=== PATIENT | male | born 1960 | race Caucasian/White ===

== ENCOUNTER 2018-02-16 13:26 | Outpatient (CLI) | payer BC, SELFPAY ==
--- NOTE | 2018-02-16 13:17 | DI.RAD_ITS ---
SYMPTOM/DIAGNOSIS: PAIN RIGHT KNEE: There are no prior comparison exams. There is severe narrowing of the medial femoral tibial joint with periarticular spurring and varus angulation. Spurring is also seen at the tibial spines and patellofemoral joint. There is an ossification in the patellar tendon near the tibial tubercule and some spurring at the tibiotubercule. IMPRESSION: Severe degenerative changes of the medial femoral tibial joint. STANDING BILATERAL LOWER EXTREMITIES: Standing AP view was performed from the iliac crests through the ankles. The hip joint spaces are well maintained. There is severe narrowing of the medial femoral tibial joint space of the right knee with some varus angulation. The left knee shows normal joint space. There are degenerative changes of both ankles with spurring from the malleoli. No significant ankle joint space narrowing is seen. There is no significant leg length discrepancy. IMPRESSION: Severe degenerative changes of the medial femoral tibial joint of the right knee.
== END 2018-02-16 13:46 ==
PROVIDERS: Visit Provider Physician Assistant Surgical
DX: M25.561 Pain in right knee (principal); M17.11 Unilateral primary osteoarthritis, right knee
CPT/HCPCS: 73560; 77073

== ENCOUNTER 2018-09-16 09:01 | Outpatient (CLI) | payer BC, SELFPAY ==
--- NOTE | 2018-09-16 08:04 | W.PREOPHP ---
Date of service: 09/16/18 Assessment and Plan (1) Primary osteoarthritis of right knee: Current visit: Yes Status: Chronic Right total knee replacement. Details of surgery were discussed with patient as well as risks and pertinent anatomy. All questions were answered. History of Present Illness Chief Complaint: RIGHT knee pain Narrative: Gregory is a 58 year old male who comes in today for a preop history and physical for a RIGHT total knee replacement. He has been dealing with right knee pain for about four years now. He states that the pain bothers him whenever he is ambulating, especially for long periods of time. Stairs do not really increase his pain, but again the more activity he does with weightbearing on his knees, the worst his pain gets. He has had an arthroscopy of the right knee on 05/09/2015, and at that time it showed grade 4 arthritis of the medial femoral condyle with full-thickness cartilage loss. He has tried conservative treatment including a steroid injection which provided no relief, as well as Synvisc injections which again have not provided lasting relief. He also has attempted to treat his knee pain with an off coal unloader brace, again with no success. X-rays do show significant arthritis of the right knee with complete joint space loss on the medial side as well as osteophytes throughout. There are also osteophytes throughout his patella femoral joint as well. Because he is failed conservative treatment, Dr. Moffett does offer a right total knee replacement, and Gregory is anxious to proceed. Pertinent Surgical Information Gregory would prefer a spinal anesthesia, and if at all possible would like to be conscious for the procedure. Patient denies history of hypertension, CVA, [place], angina, asthma, COPD, renal or liver disorders, hepatitis, bleeding disorders, diabetes, immune or thyroid disorders. No complications from anesthesia. Review of Systems Constitutional Denies fever(s) ENT Denies dizziness and Denies sore throat Cardiovascular Denies chest pain, Denies palpitations and Denies dyspnea Respiratory Denies cough and Denies dyspnea Gastrointestinal Denies abdominal pain, Denies melena, Denies hematochezia, Denies diarrhea, Denies nausea and Denies vomiting Genitourinary Denies hematuria and Denies dysuria Neurologic Denies dizziness Endocrine Denies palpitations [facility] Medical History Anxiety (Chronic) Depression (Chronic) Rosacea (Acute) Hyperlipidemia (Acute) Polyp, colonic (Acute) Surgical History History of arthroscopy of right knee (Acute) History of ear surgery (Acute) History of colonoscopy (Chronic) History of tonsillectomy (Chronic) Social History Smoking/Tobacco Use Status: Current-Occasional Drug use: Never Household members: spouse Meds Home Medications Medication Instructions Recorded Confirmed Type atorvastatin 20 mg tablet 40 mg PO QPM tab 06/05/18 09/16/18 History citalopram 40 mg tablet 20 mg PO DAILY #45 tab 07/10/18 09/16/18 Rx naproxen sodium [Aleve] 440 mg PO PRN PRN 09/16/18 09/16/18 History Allergies Allergy/AdvReac Type Severity Reaction Status Date / Time No Known Allergies Allergy Verified 09/16/18 09:18 Exam HENTN Head: normocephalic and atraumatic General nose exam: no nasal discharge Throat: uvula midline and no uvular edema Other: soft palate rises symmetrically, no erythema Eyes Conjunctivae: conjunctivae normal Sclera: sclerae normal Pupils: PERRL Resp Effort & Inspection: normal respiratory effort Auscultation: clear to auscultation bilaterally and no wheezes Cardio Rate: regular rate Rhythm: regular rhythm Heart Sounds: S1 normal, S2 normal and no murmurs GI Palpation: soft, no hepatosplenomegaly and nontender Auscultation: normal bowel sounds Results Labs : 09/16/18 10:10 09/16/18 10:10
--- NOTE | 2018-09-16 08:08 | HPE_ITS ---
Date of service: 09/16/18 Assessment and Plan (1) Primary osteoarthritis of right knee: Current visit: Yes Status: Chronic Right total knee replacement. Details of surgery were discussed with patient as well as risks and pertinent a natomy. All questions were answered. History of Present Illness Chief Complaint: RIGHT knee pain Narrative: Gregory is a 58 year old male who comes in today for a preop history and physical for a RIGHT total knee replacement. He has been dealing with right knee pain for about four years now. He states that the pain bothers him whenever he is ambulating, especially for long periods of time. Stairs do not really increase his pain, but again the more activity he does with weightbearing on his knees, the worst his pain gets. He has had an arthroscopy of the right knee on 05/09/2015, and at that time it showed grade 4 arthritis of the medial femoral condyle with full-thickness cartilage loss. He has tried conservative treatment including a steroid injection which provided no relief, as well as Synvisc injections which again have not provided lasting relief. He also has attempted to treat his knee pain with an off barrel loader and cleaner brace, again with no success. X-rays do show significant arthritis of the right knee with complete joint space loss on the medial side as well as osteophytes throughout. There are also osteophytes throughout his patella femoral joint as well. Because he is failed conservative treatment, Dr. Moffett does offer a right total knee replacement, and Gregory is anxious to proceed. Pertinent Surgical Information Gregory would prefer a spinal anesthesia, and if at all possible would like to be conscious for the procedure. Patient denies history of hypertension, CVA, [place], angina, asthma, COPD, renal or liver disorders, hepatitis, bleeding disorders, diabetes, immune or thyroid disorders. No complications from anesthesia. Review of Systems Constitutional Denies fever(s) ENT Denies dizziness and Denies sore throat Cardiovascular Denies chest pain, Denies palpitations and Denies dyspnea Respiratory Denies cough and Denies dyspnea Gastrointestinal Denies abdominal pain, Denies melena, Denies hematochezia, Denies diarrhea, Denies nausea and Denies vomiting Genitourinary Denies hematuria and Denies dysuria Neurologic Denies dizziness Endocrine Denies palpitations [facility] Medical History Anxiety (Chronic) Depression (Chronic) Rosacea (Acute) Hyperlipidemia (Acute) Polyp, colonic (Acute) Surgical History History of arthroscopy of right knee (Acute) History of ear surgery (Acute) History of colonoscopy (Chronic) History of tonsillectomy (Chronic) Social History Smoking/Tobacco Use Status: Current-Occasional Drug use: Never Household members: spouse Meds Home Medications Medication Instructions Recorded Confirmed Type atorvastatin 20 mg tablet 40 mg PO QPM tab 06/05/18 09/16/18 History citalopram 40 mg tablet 20 mg PO DAILY #45 tab 07/10/18 09/16/18 Rx naproxen sodium [Aleve] 440 mg PO PRN PRN 09/16/18 09/16/18 History Allergies Allergy/AdvReac Type Severity Reaction Status Date / Time No Known Allergies Allergy Verified 09/16/18 09:18 Exam HENMT Head: normocephalic and atraumatic General nose exam: no nasal discharge Throat: uvula midline and no uvular edema Other: soft palate rises symmetrically, no erythema Eyes Conjunctivae: conjunctivae normal Sclera: sclerae normal Pupils: PERRL Resp Effort & Inspection: normal respiratory effort Auscultation: clear to auscultation bilaterally and no wheezes Cardio Rate: regular rate Rhythm: regular rhythm Heart Sounds: S1 normal, S2 normal and no murmurs GI Palpation: soft, no hepatosplenomegaly and nontender Auscultation: normal bowel sounds Results Labs : 09/16/18 10:10 09/16/18 10:10
[2018-09-16 10:45] LABS: HCT 44.5 % (40.0-50.0); HGB 15.3 g/dL (13.5-17.5); Mean Corp. HGB Concentration 34.4 g/dL (32.0-36.0); Mean Corpuscular Hemoglobin 33.6 pg (27.0-33.0); Mean Corpuscular Volume 97.6 fL (80-95); Mean Platelet Volume 9.8 fL (8.0-11.0); Platelet Count 182 x1000/uL (130-400); RBC 4.56 m/cumm (4.50-6.00); RBC Distribution Width 12.2 % (11.8-14.1); White Blood Cell Count 5.29 k/cumm (4.4-10.8)
[2018-09-16 11:27] LABS: Anion Gap 9.9 mmol/L (3-11); BUN 27 mg/dL (7-18); CO2 27.1 mmol/L (21.0-32.0); CREATININE 0.98 mg/dL (0.70-1.30); Calcium 9.4 mg/dL (8.5-10.1); Chloride 102 mmol/L (98-107); Glucose 102 mg/dL (70-100); Potassium 4.7 mmol/L (3.5-5.1); Sodium 139 mmol/L (136-145)
== END 2018-09-16 09:21 ==
PROVIDERS: PCP Family Medicine; Visit Provider Student in an Organized Health Care Education/Training Program
DX: M25.561 Pain in right knee (principal); M17.11 Unilateral primary osteoarthritis, right knee; Z01.818 Encounter for other preprocedural examination
CPT/HCPCS: 36415; 80048; 85027; NC

== ENCOUNTER 2018-09-24 06:03 | Inpatient (IN) | payer BC, SELFPAY ==
[2018-09-24] VITALS (13 sets, daily range): BP systolic 98–131; BP diastolic 61–85; PULSE 58–74; RESP 16–19; TEMP 36.1–36.8; O2SAT 95–98
[2018-09-24] MEDS: Acetaminophen 500 MG TAB 1000 MG PO ×3 (06:44→20:06)
[2018-09-24] MEDS: Gabapentin 300 MG CAP PO (06:44)
[2018-09-24] MEDS: Celecoxib 200 MG CAP 400 MG PO (06:44)
[2018-09-24] MEDS: oxyCODONE-CR 10 MG TABCR PO (06:44)
[2018-09-24] MEDS: Lactated Ringers 1,000 ML 80 ML IV ×3 (06:48→23:35)
[2018-09-24] MEDS: Bupivacaine LIPOSOME/PF 133 MG/10 ML VIAL IJ ×2 (07:07→08:56)
[2018-09-24] MEDS: Bupivacaine 0.5% Pres-Free 30 ML VIAL (07:07)
[2018-09-24] MEDS: ceFAZolin 2 GM/50 ML BAG IVPB (07:24)
[2018-09-24] MEDS: Ketorolac 30 MG/ML VIAL (08:56)
[2018-09-24] MEDS: Normal Saline 50 ML (08:56)
[2018-09-24] MEDS: Bupivacaine 0.25% Pres-Free 30 ML VIAL (08:56)
--- NOTE | 2018-09-24 13:39 | PT.INIE ---
Date of service: 09/24/18 Time of Service: 13:49 PT Notes Inpatient Physical Therapy Evaluation Date: 09/24/2018 Referring Doctor: Reinier Moffett MD PT Orders: PT CONSULT: Status post right TKA Precautions: Fall. Standard. Patient Profile/Admitting Diagnosis: Patient is a 58-year-old male who has primary osteoarthritis of right knee status post right total knee arthroplasty on postperative day 0. PMHX: Medical History Anxiety (Chronic) Depression (Chronic) Rosacea (Acute) Hyperlipidemia (Acute) Polyp, colonic (Acute) Surgical History History of arthroscopy of right knee (Acute) History of ear surgery (Acute) History of colonoscopy (Chronic) History of tonsillectomy (Chronic) Social History/Home Situation: Patient lives with in [place] with no steps to enter the house. Patient was independent with all aspects of ADLs without the need for an assistive ambulatory device nor an adaptive equipment. He still drives. He still works full-time and hopes to go back as soon as he is fully recovered. Current Functional Limitations: Need for an assistive ambulatory device and assistance for all transfer and ambulation task performance. Equipment Owned/DME: None Subjective: Patient is pleasant and cooperative. He is agreeable to a PT consult and treatment today. He is hopeful that he can go home at safest level as early as tomorrow. He states that he still has some diminished sensation to bilateral gluteal areas but he is able to feel his toes and feet at time of evaluation. Objective: General Observation: Patient seen resting in bed. present during evaluation and treatment. STACI wraps on her right LE. Anti-DVT pump on left leg. IV in left UE. ISAI stocking on left LE. Mental Status: Alert and oriented x4 Pain: 2/10 on anterior distal thigh and knee on the right side ROM: Right Upper Extremity: Shoulder Flexion WFL. Shoulder abduction WFL. Elbow flexion WFL. Wrist flexion WFL. Functional opening and closing of hand WFL. Left Upper Extremity: Shoulder Flexion WFL. Shoulder abduction WFL. Elbow flexion WFL. Wrist flexion WFL. Functional opening and closing of hand WFL. Right Lower Extremity: Hip flexion WFL. Hip abduction WFL. Knee flexion 0-94, range limited by STACI wraps and complaints of discomfort. Knee extension 94 to 0 degrees without complaints of discomfort at end range. Ankle dorsiflexion WFL. Ankle plantarflexion WFL. Left Lower Extremity: Hip flexion WFL. Hip abduction WFL. Knee flexion WFL. Ankle dorsiflexion WFL. Ankle plantarflexion WFL. Strength: Right Upper Extremity: Shoulder flexors 5/5. Shoulder abductors 5/5. Elbow flexors 5/5. Elbow extensors 5/5. Board Certified Family Physician strong. Left Upper Extremity: Shoulder flexors 5/5. Shoulder abductors 5/5. Elbow flexors 5/5. Elbow extensors 5/5. Board Certified Family Physician strong. Right Lower Extremity: Hip flexors 4/5. Hip abductors 4/5. Knee flexors 3-/5. Knee extensors 4/5. Ankle dorsiflexors 5/5. Ankle plantarflexors 5/5. Left Lower Extremity:Hip flexors 5/5. Hip abductors 5/5. Knee flexors 5/5. Knee extensors 5/5. Ankle dorsiflexors 5/5. Ankle plantarflexors 5/5. Sensation: Diminished on bilateral gluteal areas as to pressure. Bed Mobility/Transfers: Rolling SBA Supine to sit SBA Sit to supine SBA Sit to stand CGA Stand to sit CGA Bed to chair CGA Chair to bed CGA Gait: Patient was able to tolerate level surface ambulation with FWW with WBAT on right requiring only CGA of this PT and with helping out to manage IV pole. Patient was able to tolerate 60 feet x 2 with a step through gait pattern with decreased shashi and decreased knee flexion on right during swing due to postoperative status. No report of right knee instability throughout gait activity with good quad activation observed. No report of dizziness, headache, and chest pain throughout activity. Balance: Static Sitting: Normal Dynamic Sitting: Normal Static Standing: Good Dynamic Standing: Fair Special Tests: Mobility Limitations Standardized Measure [facility] AM-PAC 6 clicks Basic Mobility Inpatient Short Form: Raw Score: 18 CMS Score: 47% deficit Informed Consent/Education: Patient instructed in purpose of PT consult and plan of care. Patient was educated and trained about performing hourly exercises when in bed consisting of ankle pumping x30, bilateral quadriceps setting held for 5 seconds x 10, heel slide on the right side to before the point of pain and held for 5 seconds x 10, and straight leg raising to before the point of pain in held at end range for 5 seconds x 10. Assessment: Patient presents with clinical signs and symptoms consistent with current/admitting diagnoses and post reparative status that have resulted to mobility limitations, gait instability, generalized weakness, and impairment of motor control as demonstrated by the following impairment level findings: 1. Decreased strength to R LE major muscle groups 2. Impaired sitting/standing balance 3. Impaired activity tolerance 4. Limitation of joint range of motion in R knee Impairments are contributing to the following functional limitations: 1. Dependent bed mobility skills 2. Increased dependence with transfers 3. Inability to safely ambulate without assistive device and physical assistance 4. Increase completion time for mobility ADL performance 5. Increased fall risk 6. Inability to negotiate steps alone safely Patient is assessed as a [id number] moderate complexity based on the following: History: 58-year-old cognitively intact active male who has primary osteoarthritis of right knee and is status post right total knee arthroplasty Examination: Underlying impairments and functional limitations as noted above Presentation:Evolving Decision Makin moderate complexity Goals: Goals X1 week 1. Supine-Sit goals X1 week 1. Supine-Sit independent 2. Sit-Supine independent 3. Sit-Stand independent 4. Stand-Sit independent 5. Bed-Chair independent 6. Chair-Bed independent 7. Independent gait on level surface with use of least restrictive device for at least 300 feet without report of pain nor dyspnea 8. Independent stair negotiation while holding onto bilateral rails for at least 10 steps without report of pain nor dyspnea 9. Independent with home exercise program 10. Good static and dynamic standing balance/tolerance Plan of Care/Treatment Plan: 1-2x/day, 7 days/week x 1 week. Plan of care has been reviewed with the [employer] CAL[employer]ATOR providing the service under Physical Therapy direction. Initiate Physical Therapy intervention for strengthening, bed mobility, transfers, gait, stairs, balance training, use of assistive device. DISCHARGE RECOMMENDATIONS: Patient to go home with with home exercise program per orthopedic surgeon's protocol in place. May benefit from outpatient physical therapy in order to facilitate return to premorbid independent level and to vocational activities. Patient will benefit from use of a front wheeled walker in order to maximize mobility at home and to reduce fall risk. TREATMENT CODE/TIME: [id number] x 30 minutes, [id number] x 21 minutes beginning at 12:49 PM. Thank you very much for this referral. Samantha Carbajal PT, DPT, CLT [facility]
[2018-09-24] MEDS: Docusate Sodium 100 MG CAP PO (16:14)
[2018-09-24] MEDS: oxyCODONE 5 MG TAB PO ×2 (16:14→21:05)
[2018-09-24] MEDS: Celecoxib 200 MG CAP PO (20:06)
[2018-09-24] MEDS: Aspirin E.C. 81 MG TABEC PO (20:06)
[2018-09-24] MEDS: Atorvastatin 40 MG TAB PO (22:04)
[2018-09-25 00:05] VITALS: BP 144/85; PULSE 58; RESP 16; TEMP 36.5; O2SAT 94
[2018-09-25] MEDS: oxyCODONE 5 MG TAB PO ×2 (04:17→07:56)
[2018-09-25 04:28] VITALS: BP 112/69; PULSE 63; RESP 18; TEMP 36.6; O2SAT 96
--- NOTE | 2018-09-25 05:56 | W.PM.OP ---
Date of service: 09/24/18 Time of Service: 10:56 Operative Note DATE OF PROCEDURE: 09/24/18 PRE-OP DIAGNOSIS: Right knee osteoarthritis POST-OP DIAGNOSIS: same PROCEDURE: Right Total Knee Replacement SURGEON: Reinier Moffett MEDICAL BILLING MANAGER: Eunice King ANESTHESIA: regional and spinal ESTIMATED BLOOD LOSS: 200 PATHOLOGY: none sent TOURNIQUET TIME: 32 COMPLICATIONS: None Patient was transported to: PACU Patient's condition: stable Implants: 1. Depuy Attune Posterior Stabilized Femoral Component, Size 8 2. Depuy Attune Fixed Platform Tibial Component, Size 7 3. Depuy Attune 8 x 5 mm fixed, Stabilized Poly 4. Depuy Attune Patellar Component, Size 41 mm Indications: I have seen Gregory in clinic for symptoms of RIGHT knee arthritis, confirmed with radiographic findings. He has exhausted nonoperative methods and was having significant limitations in daily function and desired better function and less pain. I discussed the technical details of a knee replacement. I explained the risks of the procedure to include, but not limited to, bleeding, infection, pain, stiffness, fracture, damage to nerves and vessels, damage to muscles and tendons, loosening, need for repeat procedure, blood clot and cardiopulmonary demise. Despite these risks, he elected to proceed. Findings: There was significant signs of arthritis throughout the knee. These were most notable in the medial compartment with full-thickness cartilage loss and large osteophytes. There is also chondral damage seen in the lateral compartment and patellofemoral joint. Procedure Description: Gregory was greeted in the preoperative holding area where the correct side was identified and marked. The consent was reviewed with the patient and signed. The history and physical was updated. All questions were answered. Preoperative medications were administered: Acetaminophen 1000mg, Celebrex 400mg, Gabapentin 300mg, and Oxycontin 10mg. An adductor canal block was then administered by the anesthesia team in the PACU. Gregory was taken back to the operating room. A spinal anesthestic was then administered. The patient was placed into the supine position on the operating room table. A nonsterile tourniquet was placed high onto the leg but only used for cementing. Posts were placed for positioning during the procedure. All bony prominences were well padded. Prophylactic antibiotics in the form of cefazolin were administered. 1g of Tranxemic Acid was given intravenously within 30 minutes of incision. The right leg was then prepped with Chloraprep and draped in a standard fashion with impervious stockinette and extremity drape with Iodine impregnated skin protection. A timeout to confirm correct identity, side and site, procedure, allergies, anesthesia, and medical concerns was performed. With the knee in some flexion, a midline incision was made overlying the knee. Full thickness skin flaps were raised once the extensor mechanism was encountered. These were raised medially and laterally. Any bleeding was controlled with electrocautery. Once the extensor mechanism was fully exposed, a medial parapatellar arthrotomy was performed in a flexed position. All bleeding from the arthrotomy and the geniculate arteries was coagulated. A medial subperiosteal peel was performed with electrocautery to the midcoronal plane. The fat pad was removed while keeping the patellar tendon protected. The anterior distal femur synovium was removed for later visualization. The ACL and PCL were resected and the anterior horn of the lateral meniscus was transected. The knee was then flexed with the patella everted. Large osteophytes from the tibia were removed. Large osteophytes from the femur were removed. Using a step drill, and based on preoperative templating, the femoral canal was entered. This was done with a step drill without any difficulty. The intramedullary distal femoral cut guide was inserted, set to a 5 degree valgus cut and 9mm cut thickness. The distal femoral cut guide was then held in position and pinned. With the soft tissues protected, the distal cut was performed. This was passed over a few times to ensure a planar cut. I then turned attention to the tibia. The extramedullary guide was placed onto the leg. The distal aspect was slid medial to adjust for position of center of ankle and stay in line with shaft of the tibia. Approximately 3-5 degrees of posterior slope was kept in the proximal cutting guide. The center of the guide was aligned with the PCL. The stylus was used to assess cut thickness. The medial side, most involved side, was set for a 4mm cut. This was then held in position and pinned into place with 2 additional pins and a cross pin for stability. The medial and lateral collateral ligaments were protected and the cut was performed. With this completed, it was assessed and noted to be of appropriate dimensions. The guide was removed. A spacer block was inserted and the knee was brought into extension. The 5 mm spacer block provided full extension, without hyperextension and with stability of both the medial and lateral collateral ligaments was assessed. The pins from the femur and the tibia were then removed. The distal femur was then sized. The anterior stylus was placed onto the lateral ridge of the anterior femur. This indicated a size 8 femur. The external rotation of the guide was adjusted to 5 degrees to match the epicondylar axis, perpendicular to Duplin?s line. The 4-in-1 cutting guide was the placed. The posterior medial femur cut was evaluated and appeared of good thickness. The spacer block was inserted underneath the cutting guide and stability was confirmed in 90 degrees of flexion. An octavio wing was used to confirm appropriate position of the anterior cut to avoid notching. This cutting guide was ensured to be flush on the cut surface and then pinned into place with headed pins. While protecting the soft tissues, quad tendon, and collateral ligaments, the anterior and posterior cuts were performed with a saw. The central two pins were removed and the posterior and anterior chamfers were cut next. The notch-cutting guide was placed. This was pinned to lateralize the femoral component as much as possible while keeping it flush on the cut surface. This was then pinned into position. A reciprocating saw was used to make the notch cut. A rasp smoothed the cut surfaces. A trial posterior stabilized femoral component was then inserted, impacted down to the cut surfaces, and the lug holes were drilled. A provisional trial tibial component was placed and the knee was brought through range of motion. There was noted to be excellent extension and flexion. There was no significant instability. The patella was tracking without thumbs. The tibial cut surface was fully exposed. The medial and lateral menisci were removed. The tibia was then sized as a 7. The tibia had been previously marked during trialing to correspond to the center of the tibial component to help with rotation. The trial was aligned to this katty, approximately rotated to the medial 1/3rd of the tibial tubercle. The trial was pinned into place. The tibia was prepared with a reamer and a keel punch. The knee was then brought into extension and the patella was measured as 31 mm. Using the patellar clamp and cut guide, this was resected to a flat surface with at least 13mm of thickness remaining. The size 41 mm patella fit the best. This was oriented and then clamped into position. The lugs were drilled. The trial components were removed. The final components, except for the polyethylene were opened on the back table. The periosteal and capsular tissues, especially posteriorly, around the knee were then systematically injected with a periarticular cocktail consisting of 50cc 0.25% Marcaine, 30mg Ketorolac, 20cc of Exparal and 50cc of injectable saline. The tourniquet was then inflated to 275mmHg. The knee was thoroughly irrigated with a pulse lavage and dried. On the back table, with the implants opened, the cement was mixed. 2 batches of antibiotic laden cement were prepared with vacuum assistance. After the cement was ready a small amount was placed on to the back side of the tibial component at the keel. A small amount was placed onto the posterior flange of the femur. Cement was manual pressurized and impregnated into the cut surface of the tibia. The tibial component was then inserted into the cut surface and impacted into position. Excess cement was removed and the component was reimpacted. Again, excess cement was removed and our attention was then turned to the femur. The femoral cut surface was once again dried and cement was manually impacted into the cut surface. The femoral component was lined with the lug holes and impacted. Excess cement was removed. It was ensured to be down against the cut surface. The trial polyethylene was then inserted and the leg was brought out into full extension for the duration of the cement curing process, approximately 15min. Cement was lastly manually impacted into the cut surface of the patella and the patellar button was clamped into position and held. During this process attention was turned to the gutters of the knee and for all interfaces for any excess cement. After the cement had finally cured, approximately 15min, the clamp was removed from the patella and the knee was taken through range of motion. A size 5 mm polyethylene component provided the best range of motion and stability with less than 2mm gapping with medial and lateral stress and full extension without significant hyperextension. The patella was tracking with a no-thumbs technique. The trial poly was removed and once again the knee was checked for any loose, excess, or errant cement. The poly component was then inserted and impacted into position after cleaning and drying the tibial tray. The capsule was then reapproximated with a No. 1 Vicryl at multiple locations. The capsule was finally closed with a No. 2 Stratafix, barbed suture. The tourniquet was then released and the arthrotomy appeared watertight without significant bleeding. The second dosing of 1g TXA was started. Deep tissues were then reapproximated with 0 Vicryl and 2-0 Vicryl. The skin was closed with a running 3-0 Monocryl in a subcuticular fashion. This was reinforced with skin glue. A Mepilex silver dressing was applied along with a [id number] STACI wrap. A CryoCuff was applied. Gregory was transferred to the hospital bed without difficulty an suffering no apparent complication. Gregory has a good prognosis. Physical therapy will start today and without restrictions, weight-bearing as tolerated. Aspirin 81mg BID will be used for DVT prophylaxis.
[2018-09-25 07:15] VITALS: BP 110/74; PULSE 71; RESP 18; TEMP 36.4; O2SAT 96
[2018-09-25] MEDS: HYDROmorphone 2 MG/ML VIAL 0.5 MG IVP (07:17)
[2018-09-25] MEDS: Normal Saline Flush 10 ML SYR IV (07:18)
[2018-09-25] MEDS: Celecoxib 200 MG CAP PO (07:57)
[2018-09-25] MEDS: Acetaminophen 500 MG TAB 1000 MG PO (07:57)
[2018-09-25] MEDS: Citalopram 20 MG TAB PO (07:57)
[2018-09-25] MEDS: Aspirin E.C. 81 MG TABEC PO (07:57)
[2018-09-25] MEDS: Pantoprazole 40 MG TABCR PO (07:57)
--- NOTE | 2018-09-25 08:23 | PDOC.CMIN ---
Care Management Initial Assess REASON FOR HOSPITALIZATION:: R Knee DJD PAST MEDICAL HISTORY/PAST SURGICAL HISTORY:: Anxiety, Depression, Hyperlipidemia, Polyp, colonic, Rosacea, right knee arthroscopy, colonoscopy, ear surgery, tonsillectomy PREVIOUS FUNCTIONAL STATUS/SOCIAL/FAMILY SUPPORTS:: Gregory resides with his , Chelo in [place], [place]. 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 Gregory reports he can manage most of his tasks from home over the phone if needed. He shares excitement at spending the [place] where their home is located year round. He is independent at baseline with all ADLs. CURRENT FUNCTIONAL STATUS:: Gregory is ambulating with FWW and PT when CM first meets with him. provides FWW for PT to adjust for Gregory. Later, when CM meets with Kermit again, he is lying in bed; appears relaxed and was forthcoming with information, sharing no concerns regarding discharge. ADVANCE DIRECTIVES:: None on file at [facility]. Has patient been provided with information about the portal?: Yes Did the patient sign up for the portal?: No CODE STATUS:: Full Code INSURANCE COVERAGE / FINANCIAL ISSUES:: / [place] CURRENT HOME/COMMUNITY SERVICES/EQUIPMENT:: No current services or equipment. PRIMARY CARE PHYSICIAN:: Guille Delgado POTENTIAL DISCHARGE NEEDS:: Follow up appointment with GIOVANNA Devine coordination through [facility] at patient's request. PATIENT/FAMILY EDUCATION NEEDS:: Review of discharge instructions, discuss Ask Me Three. ANTICIPATED BARRIERS TO DISCHARGE:: None identified. TRANSPORTATION:: Via private vehicle with his , Chelo. PLAN:: Gregory will return home when ready per MD. He will follow up with Dr. Moffett and his plan of care including activity restrictions and medication recommendations. He will transport via private vehicle with his , Chelo.
--- NOTE | 2018-09-25 09:15 | W.PM.DS.N ---
Date of service: 09/25/18 Time of Service: 09:15 DS: Diagnosis Discharge Diagnosis (1) Primary osteoarthritis of right knee: Status: Chronic Discharge Plan Disposition Patient Disposition: HOME Condition: Good Discharge Details Reason For Visit: R Knee DJD Admit Date/Time: 09/24/18 06:03 Admit Provider: Reinier Moffett Attending Provider: Reinier Moffett Primary Care Provider: Guille Delgado Hospital Course Hospital Course: Patient was admitted to the medical/surgical floor following the procedure. It was tolerated well without any notable medical, surgical, or anesthetic complications. Mobilization began postoperatively. The iraheta catheter was removed and voiding spontaneously. Vitals were stable. Physical therapy worked with the patient and was cleared for discharge home. No acute medical issues. Home Meds and New Rx's Prescriptions: New celecoxib 200 mg capsule 200 mg PO BID PRN (Reason: pain) Qty: 60 RF: 1 aspirin 81 mg tablet,delayed release (DR/EC) 81 mg PO BID Qty: 60 RF: 0 acetaminophen 500 mg tablet 1,000 mg PO Q8H PRN (Reason: pain) Qty: 90 RF: 3 pantoprazole 40 mg tablet,delayed release (DR/EC) 40 mg PO DAILY Qty: 30 RF: 0 gabapentin 300 mg capsule 300 mg PO QHS Qty: 7 RF: 0 oxycodone 5 mg tablet 5 - 10 mg PO Q4H Qty: 18 RF: 0 Continued citalopram 20 mg tablet 20 mg PO DAILY Qty: 90 RF: 3 atorvastatin 40 mg tablet 40 mg PO QHS Qty: 90 RF: 3 Discontinued naproxen sodium [Aleve] 220 mg Capsule 440 mg PO PRN PRNRF: 0 Discharge Instructions Instructions: Total Knee Discharge Instructions Additional Instructions: Dr. Moffett?s Total Knee Discharge Instructions Activity: The most important activity is to walk. You should try to take short walks a few times a day. It is important that when resting you work on keeping the knee straight. Avoid putting a pillow behind the knee as this will encourage flexion. Work on range of motion exercises as provided by Physical Therapy. - Start outpatient physical therapy within 2 weeks. - You should wear the ISAI hose on both legs for 4 weeks. Dressing: Keep the surgical dressing in place for at least one week. After the first week it may be removed and replace with light gauze and tape or nothing. It may get wet after 3 days but avoid soaking the dressing. If it gets wet, just lightly pat dry. Medications: - You should take Tylenol and anti-inflammatory (Celebrex) as your primary pain control medications - You have been prescribed a stronger pain medication (Oxycodone) for breakthrough pain, take as needed as prescribed. - You will be taking Aspirin 81mg twice a day for DVT prevention unless instructed otherwise. - You have been prescribed Pantoprazole to help control overproduction of stomach acid while on the post-operative medications. - If you have constipation you should take Colace or Miralax (both [id number]). It takes most people 3-4 days to have a bowel movement. Follow-up: 2 weeks Stand Alone Forms: Nursing Discharge Form Referrals: Reinier Moffett MD [ [facility] STAFF PHYSICIAN] - 10/07/18 2:15 pm Activity:: Activity as Tolerated Equipment/Supplies:: Walker Diet:: As Tolerated Discharge Orders Discharge Orders: Discharge Order (Routine); Ordered 09/25/18 Ordered By: Reinier Moffett DS: Data Vitals/I&O Vitals and I&O: Vital Signs Temperature 36.4 C L 09/25/18 07:15 Temperature Source Tympanic 09/25/18 07:15 Pulse 71 09/25/18 07:15 Pulse Rhythm Regular 09/25/18 07:51 Respiratory Rate 18 09/25/18 07:15 Respiratory Effort Non-Labored 09/25/18 07:51 Respiratory Depth Normal 09/25/18 07:51 Respiratory Pattern Normal 09/25/18 07:51 Blood Pressure 110/74 09/25/18 07:15 Pulse Oximetry 96 09/25/18 07:15 Respiratory End-tidal CO2 29 09/24/18 10:15 Oxygen Delivery Method Room Air 09/25/18 07:15 Oxygen Flow Rate 0 09/25/18 07:15 Pain Level 3 09/25/18 07:56 Comment 09/25/18 04:28 Intake & Output 09/24/18 09/24/18 09/25/18 11:59 23:59 11:59 Intake Total 655.333 / 3450.333 2795 / 3450.333 1253.333 / 1253.333 Output Total 250 / 1825 1575 / 1825 1100 / 1100 Balance 405.333 / 2101.219 4286 / 1625.333 153.333 / 153.333 Weight 118 kg Intake: IV 655.333 / 0258.616 8007 / 1730.333 643.333 / 643.333 Oral 1720 / 1720 610 / 610 Output: Urine 50 / 1625 1575 / 1625 1100 / 1100 Estimated Blood Loss 200 / 200 Other: Urine Color Yellow Yellow Yellow Urine Appearance Clear Clear Clear Urine Odor None None Emesis Description None Voiding Methods Urinal Urinal PFSH Social History Smoking/Tobacco Use Status: Current-Occasional Quit status: not considering quitting Alcohol Intake: current Alcohol Intake frequency: 3 or more drinks per day Alcohol type: beer Drug use: Never Substance use type: does not use Caregiver/Support person: No Household members: spouse Housing: house Communication Needs: None Do you need help understanding health information?: Never Pets and animals: No Sexually active: Yes Do you think of yourself as: straight/heterosexual Current gender identity: male What is your relationship status?: How often do you talk on the phone with friends or family?: three or more times per week How often do you get together with friends or relatives?: twice per week How often do you attend alevism or synagogue services?: 4 or more times per year Do you belong to any clubs or organized social groups?: yes Panel score (0-1 are the most socially isolated patients): 4 What type of physical activity do you participate in: decline to answer Duration: decline to answer Karina/Temple: Orthodox Special karina needs: No
--- NOTE | 2018-09-25 10:39 | PT.INTREAT ---
Date of service: 09/25/18 Time of Service: 10:39 PT Notes 09/25/18 SUBJECTIVE: Gregory stating he has been a little woozy from the pain medication. This is improving and he is agreeable to PT treatment. OBJECTIVE: Pt's is present during our treatment today and is also give instructions for home. TRANSFERS Supine to Sit: I Sit to supine: I Sit to stand: SBA Stand to sit: SBA GAIT Device: FWW Weight bearing: AT R Assist: SBA Distance: 100' Deviation: Step to pattern STAIRS: 6-4 steps, 2-6 steps, SBA. Utilized 2 rails progressing to 1 rail and SPC THEREX: Review HEP including quad sets, SLR, heel slides. Review home protocol including frequent walks in his home, icing and avoiding pillow under his knee. Pt has good understanding of this. ASSESSMENT: Tolerates functional mobility and stair management well. Pt does not have to use the stairs at home but he wished to in the next couple of weeks to get out onto his deck. He has a good understanding of his HEP. PLAN: Pt cleared for safe mobility and transfers at home. Continue per PT and MD recommendations. Treatment time: 25 minutes [id number], [id number] Damari Jones, RAFA
[2018-09-25 11:05] VITALS: BP 107/67; PULSE 64; RESP 18; TEMP 36.6; O2SAT 95
--- NOTE | 2018-09-25 11:47 | INITIAL_ITS ---
Care Management Initial Assess REASON FOR HOSPITALIZATION:: R Knee DJD PAST MEDICAL HISTORY/PAST SURGICAL HISTORY:: Anxiety, Depression, Hyperlipidemia, Polyp, colonic, Rosacea, right knee arthroscopy, colonoscopy, ear surgery, tonsillectomy PREVIOUS FUNCTIONAL STATUS/SOCIAL/FAMILY SUPPORTS:: Gregory resides with his , Chelo in [place], [place]. 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 Gregory reports he can manage most of his tasks from home over the phone if needed. He shares excitement at spending the [place] his [place] home is located year round. He is independent at baseline with all ADLs. CURRENT FUNCTIONAL STATUS:: Gregory is ambulating with FWW and PT when CM first meets with him. provides FWW for PT to adjust for Gregory. Later, when CM meets with Kermit again, he is lying in bed; appears relaxed and was forthcoming with information, sharing no concerns regarding discharge. ADVANCE DIRECTIVES:: None on file at [facility]. Has patient been provided with information about the portal?: Yes Did the patient sign up for the portal?: No CODE STATUS:: Full Code INSURANCE COVERAGE / FINANCIAL ISSUES:: / [place] CURRENT HOME/COMMUNITY SERVICES/EQUIPMENT:: No current services or equipment. PRIMARY CARE PHYSICIAN:: Guille Delgado POTENTIAL DISCHARGE NEEDS:: Follow up appointment with GIOVANNA Devine coordination through [facility] at patient's request. PATIENT/FAMILY EDUCATION NEEDS:: Review of discharge instructions, discuss Ask Me Three. ANTICIPATED BARRIERS TO DISCHARGE:: None identified. TRANSPORTATION:: Via private vehicle with his , Chelo. PLAN:: Gregory will return home when ready per MD. He will follow up with Dr. Moffett and his plan of care including activity restrictions and medication recommendations. He will transport via private vehicle with his , Chelo.
--- NOTE | 2018-09-25 11:47 | PDOC.CMDIS ---
LACE Index Scoring Tool - Questions: Length of Stay (in days): 1 Acuity (Admit via E.D.?): No E.D. Visits: 0 - Answers: Total Score: 1 Risk of Readmission: Low Risk Care Management Discharge Reason for Hospitalization: R Knee DJD Discharge Plan: Gregory will return home when ready per MD. He will follow up with Dr. Moffett and his plan of care including activity restrictions and medication recommendations. He will transport via private vehicle with his , Chelo. Patient/Family Education Needs: Review of discharge considerations, DME provider review; insurance limitations. Services Needed at Discharge: DME Agency ([facility] )
== END 2018-09-25 12:41 | disposition home or self-care (01) | DRG 470 ==
LOC: PDS 06:05 → MS 09:58
PROVIDERS: Admitting Provider Student in an Organized Health Care Education/Training Program; PCP Family Medicine; Visit Provider Student in an Organized Health Care Education/Training Program
PROC: 0SRC0J9 Replacement of Right Knee Joint with Synthetic Substitute, Cemented, Open Approach (ICD-10-PCS; CPT 27447; principal; 2018-09-24 07:30)
DX: M17.11 Unilateral primary osteoarthritis, right knee (principal); Z96.651 Presence of right artificial knee joint; F41.8 Other specified anxiety disorders
CPT/HCPCS: 27447; 76942; 97110; 97162; 97530; NC; J0690; J1885; J2250

== ENCOUNTER 2018-10-07 08:58 | Outpatient (CLI) | payer BC, SELFPAY ==
--- NOTE | 2018-10-07 14:04 | DI.RAD_ITS ---
SYMPTOMS/DIAGNOSIS: FIRST POSTOP S/P TOTAL KNEE ARTHROPLASTY LEG LENGTH EXAMINATION AND RIGHT KNEE: Comparison examination is 02/16/18. Since the prior examination, the patient has undergone a right total knee replacement. The orthopedic hardware appears in good position. No suspicious lucencies are seen in or about the orthopedic hardware to suggest loosening. There is a small joint effusion and mild soft tissue swelling about the right knee. The left knee is well maintained with small osteophytes seen at the lateral femorotibial joint space. The right lower extremity measures 104.3 cm, the left lower extremity measures 104.8 cm.
== END 2018-10-07 09:18 ==
PROVIDERS: PCP Family Medicine; Visit Provider Student in an Organized Health Care Education/Training Program
DX: Z47.1 Aftercare following joint replacement surgery (principal); Z96.651 Presence of right artificial knee joint
CPT/HCPCS: 73560; 77073

== ENCOUNTER 2019-09-27 08:07 | Outpatient (CLI) | payer BC, SELFPAY ==
[2019-09-28 18:23] LABS: COVID-19 RT-PCR UVMMC Result Negative (Negative)
== END 2019-09-27 08:27 ==
PROVIDERS: PCP Family Medicine; Visit Provider Surgery
DX: Z11.59 Encounter for screening for other viral diseases (principal); Z01.818 Encounter for other preprocedural examination
CPT/HCPCS: U0003

== ENCOUNTER 2019-09-27 09:26 | Outpatient (CLI) | payer BC, SELFPAY ==
--- NOTE | 2019-09-27 07:45 | DI.RAD_ITS ---
EXAM: XR KNEE RT 2V AP,LAT CLINICAL HISTORY: annual f/u TECHNIQUE: COMPARISON: CR XR knee RT 1V from 10/07/2018 FINDINGS: Two views were obtained. There is a total knee joint replacement in position. The components appear well seated. No other significant bony abnormality seen. IMPRESSION:
== END 2019-09-27 09:46 ==
PROVIDERS: PCP Family Medicine; Referring Provider Family Medicine; Visit Provider Student in an Organized Health Care Education/Training Program
DX: Z96.651 Presence of right artificial knee joint (principal); Z47.1 Aftercare following joint replacement surgery
CPT/HCPCS: 73560

== ENCOUNTER 2019-09-30 07:15 | Day surgery (SDC) | payer BC, SELFPAY ==
[2019-09-30 07:30] VITALS: BP 129/78; PULSE 68; RESP 16; TEMP 36.5; O2SAT 97
[2019-09-30] MEDS: Lactated Ringers 1,000 ML 80 ML IV (07:59)
--- NOTE | 2019-09-30 08:43 | HPE_ITS ---
Date of service: 09/30/19 Time of Service: 08:43 Assessment and Plan Assessment and plan (1) Polyp, colonic: Status: Acute Assessment and plan: Plan: Colonoscopy w/ MAC The patient will be scheduled by my office. The pt understands that they need to do a bowel prep and the importance of hydration during this. The patient understands there is a theoretical risk of renal failure. For healthy patients we use Gatorade/Miralax Prep. For anyone with renal concerns- GoLytely will be used. Plavix and Coumadin will need to be held except in unusual circumstances. Patients in A. Fib do not need to be bridged with Lovenox, or on CVA prophylaxis. A baby ASA can be continued but full dose ASA needs to be stopped for 10 days prior to the procedure. A complete H & P is required within 30 days of the procedure. MAC is used for the colonoscopy. Colonoscopy does not require antibiotics prophylaxis. Risks: Informed consent is obtained for the procedural (explained in simple layman's terms that the pt and/or family could understand) explaining risks vs benefits and alternatives to the procedure and consequences if we do not do the procedure and need/rational for the procedure. Risks include but are not limited to: bleeding, infection, perforation of colon. This would necessitate emergency surgery to repair the damage w/ possible ostomy; and other associated complications w/ the required surgery. Also complications of anesthesia including, but not limited to: aspiration, MA/CVA/. MAC does require an H & P within 30 days of the procedure. I discussed with the patient would they could expect during the procedure, post procedure and recovery time and risks. The patient understands that they need to have a ride home after the procedure. The patient was given all this information in writing and expressed understanding. Thank you for allowing me to participate in the care of this patient. A copy of the Endoscopy report will be forwarded to your office. If there are any questions or concerns please feel free to contact my office CARDIAC CONDITION HIGH RISK MODERATE RISK LOW RISK Prosthetic heart valves including bioprosthetic and homograft valves X Prior history of IE X Complex cyanotic congenital heart diseases such as single ventricle states, transpostion of the great arteries, and tetralogy of Fallot X Surgically constructed systemic or pulmonary conduits X Cc: PCP (2) Diverticula of colon: Status: Acute History of Present Illness Consults Consult date: 09/30/19 Narrative: [facility] PATIENT NAME: VIKY THAYER #: [id number] ADMITTING PROVIDER: Josselin Harvey #: [id number] PRIMARY CARE PROVIDER:JOSÉ MANUEL GARCIA MD DATE OF ADMIT: 07/02/19 : 1960 Assessment & Plan (1) Encounter for screening colonoscopy: The patient is here for Colonoscopy pre-op. His last screening was in 2013, which was remarkable for sigmoid diverticulosis and a tubular adenoma. Colonoscopy from 2009 was remarkable for tubular adenomatous polyps x2 and a hyperplastic polyps. He has no family history of colon cancer. He has not had any bowel habit changes. -Discussed colonoscopy bowel prep as well as the procedure. Discussed possible complications of the procedure to include bleeding, pain, perforation, missed small lesion/polyp, sore throat, aspiration and adverse reaction to the medications. Questions were answered to patient?s satisfaction. No guarantees were implied or given. P// Colonoscopy under sedation Plan Detail New: polyethylene glycol 3350 Colonoscopy Bowel Prep- Per Instructions 238 grams PO ONCE 238 grams 0RF Colonoscopy Bowel Prep bisacodyl (Dulcolax (bisacodyl)) Colonoscopy Bowel Prep- Per Instructions 5 mg PO ONCE 4 tabs 0RF Colonoscopy Bowel Prep Instructions: Colonoscopy (GEN) HPI 58 y/o male with history of hyperlipidemia presents for colonoscopy screening pre-op. His last screening was in 2013, which was remarkable for sigmoid diverticulosis and a tubular adenoma. Colonoscopy from 2009 was remarkable for tubular adenomatous polyps x2 and a hyperplastic polyps. Of note he reports numerous colonoscopies in the past due to precancerous polyps. He denies a family history of colon cancer. He denies any changes in bowel habits including bloody or black tarry stools, abdominal pain, diarrhea or constipation. He denies constitutional symptoms. Denies use of marijuana or any other recreational or illegal drugs. He denies chest pain, palpitations, dyspnea or dyspnea with exertion. He works out 5 days/wk for 90 mins performing cardiovasucalr exercises and strength training. He denies prior history or family history of adverse reactions or complications with anesthesia. He has metal in his right knee. Pt seen at the request of PCP regarding colon cancer screening. Pt is on a 5 yr cycle for ce's. He has had mult polyps in the past. Denies problems with constipation, diarrhea. No pain or difficulty with bowel movements. Denies rectal bleeding. There is no family history of any colon cancer or polyps that he is aware. Pt has not had any weight loss. Their appetite is good. No heart, lung, or kidney problems. No heartburn or indigestion. No prior colo- rectal surgery. No problems with anesthesia in the past. Patient has a history of: DM: no CVA/MA: no CPAP use: no Blood thinners: no Kidney disease: no Meds/NKDA/PMHx/PSHx: see [employer] ROS: 4 point ROS neg other than the symptoms noted above in the HPI. Review of Systems All systems reviewed & are unremarkable except as noted in HPI and below [facility] Medical History (Updated 09/30/19 @ 08:46 by Eunice Mcconnell DO) Anxiety (Chronic) pt. denies this condition Depression (Chronic) pt. denies this condition Diverticula of colon (Acute) Hyperlipidemia (Acute) Polyp, colonic (Acute) Rosacea (Acute) Surgical History History of arthroscopy of right knee (Acute) 05/09/2015 History of colonoscopy (Chronic) History of ear surgery (Acute) L ear History of tonsillectomy (Chronic) History of total right knee replacement (TKR) (Chronic 09/24/18) Family History Mother , 56 Smoker Hypertension Heart attack Father Smoker FORMER Stroke Brother No problems noted. Brother No problems noted. Paternal Uncle Diabetes Paternal Uncle Diabetes Sister No problems noted. Sister No problems noted. Son No problems noted. Son No problems noted. Social History Smoking/Tobacco Use Status: Current-Occasional Tobacco Type: cigars Quit status: not considering quitting Second Hand Exposure: Yes Alcohol Intake: current Alcohol Intake frequency: 3 or more drinks per day Alcohol type: beer Drug use: Never Substance use type: does not use Caregiver/Support person: No Household members: spouse Housing: house Communication Needs: None Do you need help understanding health information?: Never Pets and animals: No Sexually active: Yes Do you think of yourself as: straight/heterosexual Current gender identity: male What is your relationship status?: How often do you talk on the phone with friends or family?: once per week How often do you get together with friends or relatives?: once per week How often do you attend episcopal or anglican services?: 4 or more times per year Do you belong to any clubs or organized social groups?: yes Panel score (0-1 are the most socially isolated patients): 3 What type of physical activity do you participate in: walking, bicycling and weight lifting Duration: 60-90 minutes/day Frequency: 5-6 times per week Karina/Roman Catholic: Amish Special karina needs: No Seatbelt use: always Helmet use: Yes Helmet use: always Drive intox or ride w/intox 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 Do you feel safe at home: Yes Do you feel safe in your relationship?: Yes Meds Home Medications and Allergies Home Medications Medication Instructions Recorded Confirmed Type atorvastatin 40 mg tablet 40 mg PO QHS #90 tab 09/18/18 09/30/19 Rx acetaminophen 1,000 mg PO Q8H PRN #90 tab 09/25/18 09/30/19 Rx bisacodyl 5 mg tablet,delayed 5 mg PO ONCE #4 tab 07/02/19 09/30/19 Rx release polyethylene glycol 3350 17 238 g PO ONCE #238 gm 07/02/19 09/30/19 Rx gram/dose oral powder Allergies Allergy/AdvReac Type Severity Reaction Status Date / Time No Known Allergies Allergy Verified 09/29/19 07:52 Exam Narrative Exam Narrative: HYDRATION: Well hydrated HEAD, EYES, EARS, NECK, and Throat: Head is normocephalic, pupils equal, round, reactive to light and accommodation, ocular movement intact, sclera clear and no jaundice. Dentition intact. NECK: Supple, no lymphadenopathy, LUNGS: normal respiration, clear to auscultation HEART: Regular rate and rhythm, normal heart sounds, EXTREMITY: No edema or cyanosis, ABDOMEN: soft and non-tender today NEURO: CN: Intact. Results Last Vital Signs Temp 36.5 C 09/30/19 07:30 Pulse 68 09/30/19 07:30 Resp 16 09/30/19 07:30 BP 129/78 09/30/19 07:30 Pulse Ox 97 09/30/19 07:30 COVID-19 Screening In the past 14 days, have you traveled outside of [place] or [place]?: NO
--- NOTE | 2019-09-30 09:16 | NUR.NOTE ---
Nursing Note: 0911 117/49 69 98% 2L via Nasal Cannula 0916 102/.67 67 99% 2L via NC 0924
--- NOTE | 2019-09-30 09:23 | NUR.NOTE ---
Nursing Note: 0924 119/60 67 99%
--- NOTE | 2019-09-30 09:49 | W.PM.DSUDISC ---
Discharge Plan Disposition Patient Disposition: HOME Condition: Good Discharge Details Reason For Visit: SCREENING Attending Provider: Eunice Mcconnell Primary Care Provider: Guille Delgado Home Meds and New Rx's Prescriptions: Continued atorvastatin 40 mg tablet 40 mg PO QHS Qty: 90 RF: 3 acetaminophen 500 mg tablet 1,000 mg PO Q8H PRN (Reason: pain) Qty: 90 RF: 3 Discontinued polyethylene glycol 3350 17 gram/dose powder 238 g PO ONCE Qty: 238 RF: 0 bisacodyl [Dulcolax (bisacodyl)] 5 mg tablet,delayed release (DR/EC) 5 mg PO ONCE Qty: 4 RF: 0 Discharge Instructions Instructions: Diverticulosis (GEN), Diverticulosis Diet (GEN) Additional Instructions: Findings:moderate diverticula. Make sure you are moving your bowels on a regular basis and not straining to go to the bathroom. Follow up:repeat in 5 yrs. depending on pathology from prior polypectomy's Please call if you develop: fevers >101.5 Nausea or Vomiting Abdominal pain that is not transient DAY SURGERY UNIT POST COLONOSCOPY INSTRUCTIONS 1. Because there will be medication in your system for the next 24 hours, you may feel a little sleepy. Your coordination will be affected. Therefore: a. Do not drive or operate dangerous equipment for 24 hours. b. Do not drink alcohol beverages for 24 hours (not even beer). c. Plan to go home and rest for the day. 2. Generally there are no restrictions on your activity after a day or so has gone by, but you may feel a bit fatigued for a few days. 3 After you arrive home you may have a light meal and return to a normal diet as you can tolerate it without feeling sick to your stomach. 4. After surgery, you may feel pain or discomfort. This should be only transient, but if it persists please contact your doctor. 5. If there are any questions regarding the findings of your procedure, please feel free to contact your doctor. 6. If you are unable to contact your doctor with a problem, contact the hospital at [phone]. 7. Continue all your regular medications unless directed otherwise. I understand the above instructions and have no questions. Signature of Patient or Responsible Adult Escort Date/Time Name of Responsible Adult Escort Signature of Nurse Date/Time Activity:: No strenuous activity or lifting over 20 pounds x 24 hours Diet:: Small light meals x24 hours Discharge Orders Discharge Orders: Discharge Order (Routine); Ordered 09/30/19 Ordered By: Eunice Mcconnell DS: Diagnosis Discharge Diagnosis (1) Polyp, colonic: Status: Acute (2) Diverticula of colon: Status: Acute
--- NOTE | 2019-09-30 09:52 | ROE_ITS ---
Date of service: 09/30/19 Time of Service: 09:52 Operative Note Operative Note DATE OF PROCEDURE: 09/30/19 PRE-OP DIAGNOSIS: Hx of polyps POST-OP DIAGNOSIS: other (moderate diverticula. no polyps ) PROCEDURE: CE SURGEON: Eunice Mcconnell ANESTHESIA: none ESTIMATED BLOOD LOSS: 0 PATHOLOGY: none sent COMPLICATIONS: None Patient was transported to: same day Patient's condition: stable Procedure Description: After informed consent was obtained the patient was taken to the procedure room and placed in a left decubitous position. Monitors were applied and a time out was done. The patients name, date of , procedure, allergies to medications and metal in their body was reviewed. Pt did the procedure WITHOUT any sedation. a rectal exam was done. External exam was normal. Internal exam revealed a normal sphincter tone and no palpable masses. The prostate nl The scope was then introduced and retrofelexed. No internal hemorrhoids were identified. The scope was then advanced to the cecum w/out difficulty. The TI and appendiceal orifice were identified. The prep was good. The scope was then slowly retracted over 12 minutes back into the rectum. Polyps were removed - none moderate diverticulosis with no signs of active bleeding or infection.. The scope was removed and the patient was woken up and taken back to Same day surgery in stable condition. The patient tolerated the procedure well and there were no immediate complications. Follow up: The patient should follow up in 10 years unless they develop changes in bowel habits or other new gastrointestinal complaints.
[2019-09-30 10:15] VITALS: BP 114/73; PULSE 62; RESP 16; TEMP 36.3; O2SAT 96
== END 2019-09-30 10:30 | disposition home or self-care (01) ==
PROVIDERS: PCP Family Medicine; Visit Provider Surgery
PROC: 0DJD8ZZ Inspection of Lower Intestinal Tract, Via Natural or Artificial Opening Endoscopic (ICD-10-PCS; CPT 45378; principal; 2019-09-30 08:15)
DX: Z12.11 Encounter for screening for malignant neoplasm of colon (principal); Z86.010 Personal history of colon polyps; K57.30 Diverticulosis of large intestine without perforation or abscess without bleeding
CPT/HCPCS: 45378; NC; J2704

== ENCOUNTER 2019-12-13 08:13 | Outpatient (CLI) | payer BC, SELFPAY ==
--- NOTE | 2019-12-13 08:00 | DI.RAD_ITS ---
EXAM: XR SHOULDER RT COMPLETE 2+V CLINICAL HISTORY: R shoulder pain TECHNIQUE: 2D digital imaging was performed. COMPARISON: No exams were available for comparison FINDINGS: There is mild spurring at the AC joint and undersurface of the acromion. There are mild degenerative changes of the glenohumeral joint. Humeral head appears normally positioned. No tendon or joint sp rip calcifications are seen. IMPRESSION: Mild degenerative changes.
== END 2019-12-13 08:33 ==
PROVIDERS: PCP Family Medicine; Referring Provider Internal Medicine Hematology & Oncology; Visit Provider Student in an Organized Health Care Education/Training Program
DX: M19.011 Primary osteoarthritis, right shoulder (principal)
CPT/HCPCS: 73030

== ENCOUNTER 2020-01-07 04:04 | Outpatient (CLI) | payer BC, SELFPAY ==
--- NOTE | 2020-01-07 08:35 | DI.MRI_ITS ---
EXAM: MR UPPER JOINT RT WO CLINICAL HISTORY: RT SHOULDER PAIN, RT ROTATOR CUFF TEAR,M75.101,DECREASED RANGE OF MOTION TECHNIQUE: Multiplanar multisequence MRI was performed. COMPARISON: Plain films 13 December 2019 FINDINGS: The exam is limited by patient body habitus. There is artifact on fat-suppressed T2 weighted images. There are moderate hypertrophic changes of the AC joint. There is a small amount of fluid in the sub acromial subdeltoid bursa. There is a full-thickness tear of the supraspinatus tendon with approxima tely 1 cm of retraction. There is no significant muscle atrophy. The infraspinatus, subscapularis a nd biceps tendons appear intact. There are small subchondral cysts at the greater tuberosity. The m arrow signal is otherwise normal. Degenerative changes are seen of the labrum. The labrum is not id eally visualized. IMPRESSION: Full-thickness tear with retraction of the supraspinatus tendon. DATA REPOSITORY:
== END 2020-01-07 04:24 ==
PROVIDERS: PCP Family Medicine; Visit Provider Student in an Organized Health Care Education/Training Program
DX: M75.101 Unspecified rotator cuff tear or rupture of right shoulder, not specified as traumatic (principal)
CPT/HCPCS: 73221

== ENCOUNTER 2020-08-07 04:22 | Outpatient (CLI) | payer BC, SELFPAY ==
[2020-08-07 08:08] LABS: Hemoglobin A1C 5.4 % (<5.7)
[2020-08-07 09:19] LABS: Calculated LDL 104 mg/dL (<100); Cholesterol 162 mg/dL (<200); HDL Cholesterol 45 mg/dL (40-60); Triglyceride 65 mg/dL (<150); Vitamin B12 265 pg/mL (193-986)
[2020-08-07 17:08] LABS: PSA, Screening 0.6 ng/mL (0.0-4.5)
== END 2020-08-07 04:23 | disposition home or self-care (01) ==
LOC: LBO 04:22
PROVIDERS: PCP Family Medicine; Visit Provider Family Medicine
DX: D64.9 Anemia, unspecified (principal); R26.89 Other abnormalities of gait and mobility; E78.5 Hyperlipidemia, unspecified; R73.9 Hyperglycemia, unspecified; Z12.5 Encounter for screening for malignant neoplasm of prostate
CPT/HCPCS: 36415; 80061; 84153; 82607; 83036

== ENCOUNTER 2020-09-08 03:54 | Outpatient (CLI) | payer BC, SELFPAY ==
[2020-09-11 09:35] LABS: Homocysteine 13.7 umol/L (5.0-13.9)
[2020-09-12 13:19] LABS: Methylmalonic Acid 0.23 nmol/mL (<=0.40)
== END 2020-09-08 03:55 | disposition home or self-care (01) ==
LOC: LBO 03:54
PROVIDERS: PCP Family Medicine; Visit Provider Family Medicine
DX: E53.8 Deficiency of other specified B group vitamins (principal)
CPT/HCPCS: 36415; 80186; 83090

== ENCOUNTER 2021-01-08 10:53 | Outpatient (CLI) | payer BC, SELFPAY ==
--- NOTE | 2021-01-08 10:15 | DI.RAD_ITS ---
Exam(s) XR KNEE LT 3V AP,LAT,JERRY EXAM: XR KNEE LT 3V AP,LAT,JERRY CLINICAL HISTORY: LEFT KNEE PAIN. TECHNIQUE: 2D digital imaging was performed. COMPARISON: CR XR KNEE RT 2V AP,LAT from 09/27/2019 FINDINGS: BONES: No acute fracture is present. No bony destructive lesion is seen. JOINTS: The knee is normally aligned. No joint effusion is seen. Joint spaces are well maintained. M inimal periarticular spurring. SOFT TISSUE: Vascular calcifications. IMPRESSION: Minimal degenerative changes. DATA REPOSITORY: RADIATION DOSE DELIVERED:
== END 2021-01-08 10:54 | disposition home or self-care (01) ==
LOC: DIORS 10:53
PROVIDERS: PCP Family Medicine; Referring Provider Family Medicine; Visit Provider Student in an Organized Health Care Education/Training Program
DX: M25.562 Pain in left knee (principal)
CPT/HCPCS: 73562

== ENCOUNTER 2021-03-09 03:32 | Outpatient (CLI) | payer BC, SELFPAY ==
[2021-03-09 09:51] LABS: HCT 42.4 % (40.0-50.0); HGB 14.7 g/dL (13.5-17.5); MCH 33.6 pg (27.0-33.0); MCHC 34.7 % (32.0-36.0); MCV 96.8 fL (80-95); MPV 9.1 fL (8.0-11.0); Platelet Count 198 10^3/uL (130-400); RBC 4.38 10^6/uL (4.36-5.78); RDW-SD 43.5 fL; WBC 4.82 10^3/uL (4.4-10.8)
[2021-03-09 11:48] LABS: Albumin 4.1 g/dL (3.4-5.0); Alkaline Phosphatase 85 U/L (46-116); BUN 24 mg/dL (7-18); Bilirubin, Total 0.7 mg/dL (0.2-1.0); CREATININE 1.1 mg/dL (0.70-1.30); Glucose 99 mg/dL (74-106); Potassium 4.4 mmol/L (3.5-5.1); Sodium 139 mmol/L (136-145); Total Protein 7.2 g/dL (6.4-8.2)
[2021-03-09 11:49] LABS: ALT 48 U/L (16-63); AST 26 U/L (15-37); Anion Gap 6.4 mmol/L (3-11); CO2 28.6 mmol/L (21.0-32.0); Chloride 104 mmol/L (98-107)
[2021-03-12 13:39] LABS: Albumin 62.3 % (55.8-66.1); Total Protein 7.3 g/dL (6.3-8.2)
== END 2021-03-09 03:33 | disposition home or self-care (01) ==
LOC: LBO 03:32
PROVIDERS: PCP Family Medicine; Visit Provider Psychiatry & Neurology Neurology
DX: G62.9 Polyneuropathy, unspecified (principal); E78.5 Hyperlipidemia, unspecified; F41.8 Other specified anxiety disorders
CPT/HCPCS: 36415; 80053; 85027; 84165; 84443

== ENCOUNTER 2021-05-01 01:02 | Outpatient (CLI) | payer BC, SELFPAY ==
--- NOTE | 2021-05-01 07:30 | DI.MRI_ITS ---
Exam(s) MR LOWER JOINT LT WO EXAM: MR LOWER JOINT LT WO CLINICAL HISTORY: pain, lt peroneal nerve injury,s84.12xa. TECHNIQUE: Multiplanar multisequence MRI was performed. COMPARISON: CR XR KNEE LT 3V AP,LAT,JERRY from 01/08/2021 CR XR KNEE LT 3V AP,LAT,JERRY from 01/08/2021 FINDINGS: The examination is limited due to patient motion artifact. BONES: There is no fracture or contusion pattern. JOINTS: There is a small focus of high intensity signal in the articular cartilage overlying the medi al patellar facet. There is again a cartilage is otherwise well maintained. There is a small joint effusion. TENDONS: Extensor mechanism: Unremarkable. Medial retinaculum: Unremarkable. Lateral retinaculum: Unremarkable. Popliteus: There is mild thickening and intermediate signal seen in the popliteus tendon. This may r epresent a tendinosis. MUSCLES: Unremarkable. MENISCI: There is globular increased signal in the body of the medial meniscus. It appears to contac t the inferior articular surface consistent with a tear. Degeneration cannot be excluded. The later al meniscus is unremarkable. SOFT TISSUES: There is edema seen in the soft tissues around the knee. There is a small popliteal cy st present. LIGAMENTS: Anterior Cruciate: Unremarkable. Posterior Cruciate: Hyperintense signal is seen within the posterior cruciate ligament. There is irr egularity of the fibers. Partial tear is suspected. Medial Collateral:Unremarkable. Lateral Collateral: Unremarkable. OTHER: No cystic or solid mass is seen around the region of the fibular head. The visualized portion s of the common peroneal nerve are unremarkable. IMPRESSION: 1. The visualized portions of the common peroneal nerve are unremarkable. 2. Abnormal signal seen in the body of the medial meniscus suspicious for tear. 3. Abnormal signal seen in the posterior cruciate ligament. Findings are suspicious for partial tear . DATA REPOSITORY:
== END 2021-05-01 01:22 ==
PROVIDERS: PCP Family Medicine; Visit Provider Student in an Organized Health Care Education/Training Program
DX: M23.8X2 Other internal derangements of left knee (principal); M25.562 Pain in left knee; M25.462 Effusion, left knee; S86.112A Strain of other muscle(s) and tendon(s) of posterior muscle group at lower leg level, left leg, initial encounter; X58.XXXA Exposure to other specified factors, initial encounter; S84.12XA Injury of peroneal nerve at lower leg level, left leg, initial encounter
CPT/HCPCS: 73721

== ENCOUNTER 2021-07-09 01:13 | Outpatient (CLI) | payer BC, SELFPAY ==
[2021-07-09 12:35] LABS: Source Nasal/Nares
[2021-07-09 18:06] LABS: COVID-19 PCR Negative (Negative)
== END 2021-07-09 01:14 | disposition home or self-care (01) ==
LOC: LBO 01:13
PROVIDERS: PCP Family Medicine; Visit Provider Student in an Organized Health Care Education/Training Program
DX: Z20.822 Contact with and (suspected) exposure to COVID-19 (principal); Z01.818 Encounter for other preprocedural examination
CPT/HCPCS: 87635

== ENCOUNTER 2021-07-10 11:54 | Day surgery (SDC) | payer BC, SELFPAY ==
--- NOTE | 2021-07-10 10:11 | W.ANESPRE ---
General Info Date of Service Date Performed: 07/10/21 Height: 6 ft 2 in Weight: 119.748 kg Body Mass Index (BMI): 33.9 Surgical Procedure: Operation Date: 07/10/21 13:40 Proposed Procedure Side Surgeon p Knee Arthroscopyw/Partial Lateral Menisectomy Left Reinier Moffett MD Meds Allergies and Home Medications Allergies Allergy/AdvReac Type Severity Reaction Status Date / Time No Known Allergies Allergy Verified 07/10/21 12:20 Home Medication Medication Instructions Recorded atorvastatin 40 mg tablet 40 mg PO QHS #90 tab 11/03/20 vitamin B complex (B 1 tab PO DAILY 11/17/20 Complex-Vitamin B12) ibuprofen 200 mg tablet 400 mg PO Q6H PRN tab 12/20/20 citalopram 20 mg tablet 20 mg PO DAILY #90 tab 02/09/21 acetaminophen 500 mg capsule 1,000 mg PO Q8H PRN PRN #30 cap 07/10/21 ibuprofen 600 mg tablet 600 mg PO TID #30 tab 07/10/21 oxycodone 5 mg tablet 5 mg PO Q4H PRN #5 tab 07/10/21 Current Visit Medications: Current Medications Generic Name Dose Route Start Last Admin Trade Name Freq PRN Reason Stop Dose Admin Ringer's Solution 1,000 mls @ 80 mls/hr 07/10/21 06:00 IV 08/08/21 23:59 INFUSION MARQUEZ Cefazolin Sodium 3,000 mg/ 100 mls @ 200 mls/hr 07/10/21 06:00 Sodium Chloride IVPB 07/10/21 16:00 PREOP MARQUEZ IV Miscellaneous Supplies 1 each 07/10/21 06:00 Iv Access IV 08/08/21 23:59 DIRECTED MARQUEZ Sodium Chloride 0 ml 07/10/21 06:00 Normal Saline Flush 10 Ml Syr IV 08/08/21 23:59 PRN PRN Sodium Chloride 0 ml 07/10/21 06:00 Normal Saline 10 Ml Vial IJ 08/08/21 23:59 DIRECTED PRN Sterile Water 0 ml 07/10/21 06:00 Water,Injection,Sterile 10 Ml Vial IJ 08/08/21 23:59 DIRECTED PRN PFSH Active Problems Active Problems: Problem Status Onset Code Tear of lateral meniscus of left knee S83.282A Internal derangement of left knee M23.92 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 Gastrocnemius muscle tear S86.119A Anxiety disorder F41.9 Peripheral neuropathy G62.9 Peripheral neuropathic gait R26.89 Colon polyp, hyperplastic K63.5 Diverticula of colon K57.30 Right rotator cuff tear M75.101 History of total right knee replacement (TKR) 09/24/18 Z96.651 Anxiety F41.9 Depression F32.9 Rosacea L71.9 Hyperlipidemia E78.5 Polyp, colonic K63.5 Surgical History Surgical History History of arthroscopy of right knee 05/09/2015 History of colonoscopy (~09/30/19) History of ear surgery L ear History of tonsillectomy Tobacco Smoking/Tobacco Use Status: Current-Occasional Tobacco Type: cigars Passive smoking exposure: Yes Second hand exposure: Yes Alcohol Alcohol Intake: current Alcohol intake frequency: 3 or more drinks per day Alcohol type: beer Substance Use Substance use: Never Substance use type: does not use Vital Signs and Lab Results Lab Results Blood Type / Crossmatch: No Data to Display Complete Blood Count: No Data to Display Complete Metabolic Panel: No Data to Display Liver Function Panel: No Data to Display Coagulation Panel: No Data to Display Cardiac Panel: No Data to Display Arterial Blood Gas: No Data to Display Venous Blood Gas: No Data to Display Pancreas Panel: No Data to Display Thyroid Panel: No Data to Display Infectious Disease: Coronavirus (COVID-19)(PCR) Negative (Negative) 07/09/21 09:13 07/09/21 Coronavirus 2019 Source Nasal/Nares 07/09/21 09:13 07/09/21 Blood Cultures: No Data to Display Toxicology Panel: No Data to Display Anesthesia Assessment and Plan Anesthesia History Personal History: No History of Anesthesia Complications Family History: No Family History of Anesthesia Complications Exercise Tolerance Exercise Tolerance: Metabolic Equivalents>4 Pertinent Negatives Pertinent Negatives: No Symptoms of GERD, No Major Cardiovascular Symptoms or Complaints, No Major Pulmonary Symptoms or Complaints and No History of CVA/TIA (Neuropathy in feet) Cardiac & Pulmonary Exam Cardiac Exam: Normal S1/S2 Heart Sounds Pulmonary Exam: Clear Bilateral Breath Sounds Implantable Cardiac Device Does patient have a Pacemaker or an ICD?: No Airway Exam Known Difficult Airway: No Mallampati Class: 2 Mouth Opening: Normal (> 3cm) Thyromental Distance: Greater than 3 cm Neck Range of Motion: Full ROM Neck Circumference: Normal Teeth Condition: Normal Dentition ASA Classification ASA Score: ASA 2 Emergency Case?: No NPO Status NPO Status: NPO Clears >2 hours, Solids >8 hours Anesthesia Plan Resuscitation Status: Full Code Anesthesia Technique: Spinal Anesthesia Airway Planned: Natural Airway Monitors Used: Standard Monitors
[2021-07-10 12:21] VITALS: BP 118/87; PULSE 66; RESP 16; TEMP 36.5; O2SAT 98
[2021-07-10] MEDS: Lactated Ringers 1,000 ML 80 ML IV (12:52)
--- NOTE | 2021-07-10 13:10 | W.PM.DSUDISC ---
Discharge Plan Disposition Patient Disposition: HOME Condition: Stable Discharge Details Reason For Visit: Left knee arthroscopy Attending Provider: Reinier Moffett Primary Care Provider: Guille Delgado Home Meds and New Rx's Prescriptions: New ibuprofen 600 mg tablet 600 mg PO TID Qty: 30 0RF acetaminophen 500 mg capsule 1,000 mg PO Q8H PRN PRNQty: 30 0RF oxycodone 5 mg tablet 5 mg PO Q4H PRNQty: 5 0RF Continued vitamin B complex [B Complex-Vitamin B12] Tablet 1 tab PO DAILY 0RF ibuprofen 200 mg tablet 400 mg PO Q6H PRN0RF atorvastatin 40 mg tablet 40 mg PO QHS Qty: 90 3RF citalopram 20 mg tablet 20 mg PO DAILY Qty: 90 3RF Discharge Instructions Stand Alone Forms: [facility] Knee Arthroscopy Referrals: Reinier Moffett MD [ [facility] STAFF PHYSICIAN] - Equipment/Supplies: Partial Weight Bearing Crutches Activity:: Activity as Tolerated Remove Dressings/Wound Care:: 72 hours Shower/Bathe:: 72 hours Diet:: As Tolerated Discharge Orders Discharge Orders: Discharge Order (Routine); Ordered 07/10/21 Ordered By: Ruth Barfield DS: Diagnosis Discharge Diagnosis (1) Tear of lateral meniscus of left knee: Status: Acute (2) Internal derangement of left knee: Status: Acute
--- NOTE | 2021-07-10 13:31 | HPE_ITS ---
Documented by User: [email or web address] Curtis 07/10/21 13:39 Assessment and Plan Assessment and plan (1) Tear of lateral meniscus of left knee: Status: Acute (2) Internal derangement of left knee: Status: Acute Assessment and plan: Gregory is a 60 year old male with internal derangement of the left knee. Conservative therapies have failed including rest, time and intra-articular injection. He elects to undergo surgical intervention for treatment of his left knee pain. Possible complications of knee arthroscope were discussed. These include but are not limited to bleeding, infection, pain, stiffness, weakness, damage to nerves, damage to vessels, damage to muscle and tendon, fracture, wound healing complications, instability and blood clot. After a review of the presented information and risks the patient was given the opportunity to ask questions, all of which were answered to satisfaction. The patient elicits to proceed with the procedure. History of Present Illness History of Present Illness Chief Complaint: Left Knee Pain Narrative: Gregory is a 60 year old male who presents to day surgery for a left knee arthroscopy with Dr. Moffett. History of left knee injury while playing pickleball. Symptoms persisted and received intra-articular injection 05/19/2021 with full relief of symptoms for a few weeks however, symptoms returned and his knee continues to be bothersome. MRI reveals PCL tear and lateral meniscus tear. Elects surgical intervention at this time. Denies chest pain, palpitations, SOB, N/V/D, orthopena, changes in vision or flashes of light, changes in urinary frequency or blood in urine, black or tary stool, blood in stool, non-healing wounds. Denies history of htn, stroke, cardiac events, respiratory events requiring hospitalizations or intubation, renal or liver disorders, hepatitis, diabetes, immunologic or thyroid disorders. Denies history of complications from anesthesia. NKDA, no known food allergies, no known environmental allergies. Review of Systems Constitutional Constitutional: Reports as per HPI [facility] All Active Problems Tear of lateral meniscus of left knee (Acute) Internal derangement of left knee (Acute) Left peroneal nerve injury (Acute) Gastrocnemius muscle tear (Acute) Anxiety disorder (Acute) Peripheral neuropathy (Acute) Peripheral neuropathic gait (Acute) Colon polyp, hyperplastic (Acute) 09/30/19 w/ Dr. A Dos Santos, Normal, hx of hyperplastic polyps, repeat colo 10 years Diverticula of colon (Acute) Right rotator cuff tear (Acute) History of total right knee replacement (TKR) (Chronic 09/24/18) Anxiety (Chronic) pt. denies this condition Depression (Chronic) pt. denies this condition Rosacea (Acute) Hyperlipidemia (Acute) Polyp, colonic (Acute) Surgical History History of arthroscopy of right knee 05/09/2015 History of colonoscopy (~09/30/19) History of ear surgery L ear History of tonsillectomy Family History Mother , 56 Smoker Hypertension Heart attack Father Smoker FORMER Stroke Brother No problems noted. Brother No problems noted. Paternal Uncle Diabetes Paternal Uncle Diabetes Sister No problems noted. Sister No problems noted. Son No problems noted. Son No problems noted. 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 [employer] Pets and animals: No Sexually active: Yes Do you think of yourself as: straight/heterosexual Current gender identity: male What is your relationship status?: How often do you talk on the phone with friends or family?: once per week How often do you get together with friends or relatives?: once per week How often do you attend spiritism or latter-day services?: 4 or more times per year Do you belong to any clubs or organized social groups?: yes Panel score (0-1 are the most socially isolated patients): 3 What type of physical activity do you participate in: walking, bicycling and weight lifting Duration: 45-60 minutes/day Frequency: daily Karina/Mandaeism: [employer] Special karina needs: No Seatbelt use: always Helmet use: Yes Helmet use: always Drive intox or ride w/intox lumber driver: No Meds Allergies and Home Medications Allergies Allergy/AdvReac Type Severity Reaction Status Date / Time No Known Allergies Allergy Verified 07/10/21 12:20 Home Medications Medication Instructions Recorded Confirmed Type atorvastatin 40 mg tablet 40 mg PO QHS #90 tab 11/03/20 07/10/21 Rx vitamin B complex (B 1 tab PO DAILY 11/17/20 07/10/21 History Complex-Vitamin B12) ibuprofen 200 mg tablet 400 mg PO Q6H PRN tab 12/20/20 07/10/21 History citalopram 20 mg tablet 20 mg PO DAILY #90 tab 02/09/21 07/10/21 Rx acetaminophen 500 mg capsule 1,000 mg PO Q8H PRN PRN #30 cap 07/10/21 Rx ibuprofen 600 mg tablet 600 mg PO TID #30 tab 07/10/21 Rx oxycodone 5 mg tablet 5 mg PO Q4H PRN #5 tab 07/10/21 Rx Exam Narrative Exam Narrative: Radial pulses 2+ bilaterally, brisk capillary refill Auscultation of the heart: regular rate and rhythm, S1, S2 appreciated without murmurs gallops or rubs. Lungs: Right upper, middle, lower lobes; Left upper, lower lobes; clear to auscultation bilaterally without wheezes, rales or rhonchi. Results Last Vital Signs Temp 97.7 F 07/10/21 12:21 Pulse 66 07/10/21 12:21 Resp 16 07/10/21 12:21 BP 118/87 07/10/21 12:21 Pulse Ox 98 07/10/21 12:21 Documented by User: Reinier Moffett MD 07/10/21 13:58 Assessment and Plan Assessment and plan (1) Tear of lateral meniscus of left knee: Status: Acute (2) Internal derangement of left knee: Status: Acute Assessment and plan: Gregory is a 60 year old male with internal derangement of the left knee. Conservative therapies have failed including rest, time and intra-articular injection. He elects to undergo surgical intervention for treatment of his left knee pain. Possible complications of knee arthroscope were discussed. These include but are not limited to bleeding, infection, pain, stiffness, weakness, damage to nerves, damage to vessels, damage to muscle and tendon, fracture, wound healing complications, instability and blood clot. After a review of the presented information and risks the patient was given the opportunity to ask questions, all of which were answered to satisfaction. The patient elicits to proceed with the procedure. I interviewed and examined the patient with Janneth Barfield PA-C. I agree with the documentation as above. The assessment and plan were formulated with my direct involvement. Dg is a 60-year-old who has a known meniscal tear about the lateral meniscus. He did respond well to an injection but the pain returned. He is here today for knee arthroscopy. I reviewed the risk of the procedure to include bleeding, infection, pain, stiffness, continued pain or symptoms, recurrence or retear, blood clot. Despite these risk, he elects to proceed. Reinier Moffett MD FAAOS FAAHKS [facility] All Active Problems Tear of lateral meniscus of left knee (Acute) Internal derangement of left knee (Acute) Left peroneal nerve injury (Acute) Gastrocnemius muscle tear (Acute) Anxiety disorder (Acute) Peripheral neuropathy (Acute) Peripheral neuropathic gait (Acute) Colon polyp, hyperplastic (Acute) 09/30/19 w/ Dr. Thi Dos Santos, Normal, hx of hyperplastic polyps, repeat colo 10 years Diverticula of colon (Acute) Right rotator cuff tear (Acute) History of total right knee replacement (TKR) (Chronic 09/24/18) Anxiety (Chronic) pt. denies this condition Depression (Chronic) pt. denies this condition Rosacea (Acute) Hyperlipidemia (Acute) Polyp, colonic (Acute) Surgical History History of arthroscopy of right knee 05/09/2015 History of colonoscopy (~09/30/19) History of ear surgery L ear History of tonsillectomy Family History Mother , 56 Smoker Hypertension Heart attack Father Smoker FORMER Stroke Brother No problems noted. Brother No problems noted. Paternal Uncle Diabetes Paternal Uncle Diabetes Sister No problems noted. Sister No problems noted. Son No problems noted. Son No problems noted. 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 [employer] Pets and animals: No Sexually active: Yes Do you think of yourself as: straight/heterosexual Current gender identity: male What is your relationship status?: How often do you talk on the phone with friends or family?: once per week How often do you get together with friends or relatives?: once per week How often do you attend spiritism or latter-day services?: 4 or more times per year Do you belong to any clubs or organized social groups?: yes Panel score (0-1 are the most socially isolated patients): 3 What type of physical activity do you participate in: walking, bicycling and weight lifting Duration: 45-60 minutes/day Frequency: daily Karina/Mandaeism: [employer] karina needs: No Seatbelt use: always Helmet use: Yes Helmet use: always Drive intox or ride w/intox lumber driver: No Meds Allergies and Home Medications Allergies Allergy/AdvReac Type Severity Reaction Status Date / Time No Known Allergies Allergy Verified 07/10/21 12:20 Home Medications Medication Instructions Recorded Confirmed Type atorvastatin 40 mg tablet 40 mg PO QHS #90 tab 11/03/20 07/10/21 Rx vitamin B complex (B 1 tab PO DAILY 07/23/21 03/15/22 History Complex-Vitamin B12) ibuprofen 200 mg tablet 400 mg PO Q6H PRN tab 12/20/20 07/10/21 History citalopram 20 mg tablet 20 mg PO DAILY #90 tab 02/09/21 07/10/21 Rx acetaminophen 500 mg capsule 1,000 mg PO Q8H PRN PRN #30 cap 07/10/21 Rx ibuprofen 600 mg tablet 600 mg PO TID #30 tab 07/10/21 Rx oxycodone 5 mg tablet 5 mg PO Q4H PRN #5 tab 07/10/21 Rx
[2021-07-10] MEDS: ceFAZolin 3,000 MG in Normal Saline 100 ML 200 MG IVPB (14:05)
[2021-07-10 14:44] VITALS: BMI 33.9
[2021-07-10] MEDS: Bupivacaine 0.5% Pres-Free 30 ML VIAL (15:06)
[2021-07-10 15:16] VITALS: BP 112/74; PULSE 73; RESP 16; TEMP 36.2; O2SAT 98
[2021-07-10 15:45] VITALS: BP 104/59; PULSE 64; RESP 16; TEMP 36; O2SAT 99
--- NOTE | 2021-07-10 18:08 | W.ANESPOSTOP ---
Postoperative Evaluation Date, Time and Location Date Performed: 07/10/21 Time Performed: 18:09 Patient Location: Day Surgery Unit Vital Signs Most Recent Imported Vital Signs: Most Recent Vital Signs Temp Pulse Resp BP Pulse Ox 36 C L 64 16 104/59 L 99 07/10/21 15:45 07/10/21 15:45 07/10/21 15:45 07/10/21 15:45 07/10/21 15:45 Pain Score Most Recent Pain Score: Most Recent Pain Score Pain Level 0 07/10/21 15:45 Assessment Mental Status: Awake (Alert & Oriented to Patient Baseline) Airway and Respiratory Function: Patent airway with normal (patient baseline) respiratory exam Cardiovascular Function: Hemodynamically Stable Hydration Status: Adequately Hydrated Nausea & Vomiting: No Nausea or Vomiting Pain: Pt. Denies Any Pain Peripheral Nerve Block: Patient did not receive a nerve block Postoperative Comments:: Per Nursing patient spinal wore off appropriately and was appropriate for discharge. I was the sole provider here at time of D/C and unable to see patient due to being in the operating room.
--- NOTE | 2021-07-10 21:54 | W.PM.OP ---
Date of service: 07/10/21 Time of Service: 14:50 Operative Note Operative Note DATE OF PROCEDURE: 07/10/21 PRE-OP DIAGNOSIS: Left Lateral Meniscus Tear POST-OP DIAGNOSIS: other (Left Lateral and Medial Meniscus Tear) PROCEDURE: Arthroscopic Partial Lateral and Medial Menisectomies - Left Knee SURGEON: Reinier Moffett ANESTHESIA TYPE: Spinal Refer to Anesthesia Record ESTIMATED BLOOD LOSS: 0 PATHOLOGY: none sent COMPLICATIONS: None Patient was transported to: PACU Patient's condition: stable Indications: I have seen Dg in clinic for symptoms of a meniscus tear. This was confirmed based on MRI and exam findings and diagnostic injection. Nonoperative measures were exhausted but disability and pain persisted. I discussed knee arthroscopy with meniscal intervention with the patient. I reviewed the risks of the procedure to include, but not limited to, bleeding, infection, pain, stiffness, damage to nerves or vessels, recurrence, blood clot. Despite these risks, the patient elected to proceed. Findings: A diagnostic arthroscopy was performed with the following findings: Suprapatellar Pouch: Mild inflammatory changes, No loose bodies Medial Compartment: Complex medial meniscal tear, Intact meniscal root, Grade II chondromalacia of the femur but no loose flap, No loose bodies Notch: ACL and PCL were intact Lateral Compartment: Complex meniscal tear at the level of the posterior root extending into the posterior horn, Partiall torn posterior root, Grade I chondromalacia, No loose bodies Patellofemoral Compartment: Grade I chondromalacia, No apparent patellar maltracking Procedure Description: Dg was greeted in the preoperative holding area where the correct side was identified and marked. The consent was reviewed with the patient and signed. The history and physical was updated. All questions were answered. He was taken back to the operating room. A spinal anesthetic was administered. The patient was placed into the supine position on the operating room table. All bony prominences were well padded. Prophylactic antibiotics in the form of Cefazolin were administered. The left leg was then prepped with Chloraprep and draped in a standard fashion with stockinette and extremity drape. A timeout to confirm correct identity, side and site, procedure, allergies, anesthesia, and medical concerns was performed. The leg was placed into a pneumatic leg cantu, [id number]. A standard lateral portal was made at the lateral border of the patella tendon in line with the inferior pole of the patella, soft spot. The skin and deep tissue was incised sharply and the blunt trochar was inserted atraumatically. A diagnostic arthroscopy was performed and the findings are listed above. The suprapatellar pouch had mild inflammatory changes. The patellofemoral articulation showed Grade I chonodromalacia as well as good tracking. The lateral gutter had no loose bodies and the medial gutter had no loose bodies. The knee was brought into some valgus stress in extension to open the medial compartment. A medial portal was made, localized by a spinal needle. The portal was created with an #11 blade through skin and capsule under direct visualization avoiding any meniscal injury. A probe was then inserted into the medial compartment. The medial compartment was fully inspected. The chondral surface of the tibia showed Grade I chondromalacia and the surface of the femur showed Grade II chondromalacia. The medial meniscus had a complex tear of the posterior horn. After evaluation, the meniscus was debrided down to a stable base using a series of biters and arthroscopic pavan. It was probed afterwards to confirm that the tear had been removed and the meniscus was stable. There was the appearance that the femoral cartilage had a loose flap but this was inspected and it was not. The notch was then inspected which showed an intact ACL and an intact PCL. The leg was then brought into a figure of 4 position. The lateral compartment was fully inspected with the arthroscope and a probe. The chondral surface of the lateral femur showed Grade I chondromalacia. The chondral surface of the lateral tibia showed no significant chondromalacia. The lateral meniscus had a complex tear involving a large portion of the posterior root and extending into the posterior horn. After evaluation, the meniscus was debrided down to a stable base using a series of biters and arthroscopic pavan. It was probed afterwards to confirm that the tear had been removed and the meniscus was stable. The arthroscope was brought back into the suprapatellar pouch and the leg was in full extension. The knee was thoroughly irrigated with the arthroscopic fluid on high flow and pressure. Inflow was stopped and excess fluid was removed. The wounds were closed with 4-0 Nylon. They were dressed with Xeroform, 4x4 gauze, ABD pad, Kerlix and an STACI wrap. A cryo-cuff was applied. The patient tolerated the procedure well and was returned to the Same Day Surgery area in a stable condition suffering no known complication.
== END 2021-07-10 17:02 | disposition home or self-care (01) ==
PROVIDERS: PCP Family Medicine; Visit Provider Student in an Organized Health Care Education/Training Program
PROC: (CPT 29870; principal; 2021-07-10 13:30)
DX: S83.282A Other tear of lateral meniscus, current injury, left knee, initial encounter (principal); S83.232A Complex tear of medial meniscus, current injury, left knee, initial encounter; X58.XXXA Exposure to other specified factors, initial encounter; Y93.79 Activity, other specified sports and athletics; F41.9 Anxiety disorder, unspecified; G62.9 Polyneuropathy, unspecified; E78.5 Hyperlipidemia, unspecified
CPT/HCPCS: 29880; J0690; J1100; J2001; J2405

== ENCOUNTER 2022-09-11 09:43 | Outpatient (CLI) | payer BC, SELFPAY ==
[2022-09-11 12:58] LABS: Anion Gap 7.9 mmol/L (3-11); BUN 26 mg/dL (7-18); CO2 28.1 mmol/L (21.0-32.0); CREATININE 1.1 mg/dL (0.70-1.30); Calcium 9.2 mg/dL (8.5-10.1); Calculated LDL 89 mg/dL (<100); Chloride 104 mmol/L (98-107); Cholesterol 165 mg/dL (<200); Estimated GFR 75.43 (mL/min/1.73m2); Glucose 108 mg/dL (74-106); HDL Cholesterol 70 mg/dL (40-60); Potassium 4.3 mmol/L (3.5-5.1); Sodium 140 mmol/L (136-145); Triglyceride 33 mg/dL (<150)
[2022-09-11 22:48] LABS: PSA, Screening 0.5 ng/mL (<=4.5)
[2022-09-12 10:25] LABS: Hepatitis C Ab w Rflx HCV PCR Negative (Negative)
== END 2022-09-11 09:44 | disposition home or self-care (01) ==
LOC: LOS 09:44
PROVIDERS: PCP Family Medicine; Referring Provider Family Medicine; Visit Provider Family Medicine
DX: E78.5 Hyperlipidemia, unspecified (principal); E87.1 Hypo-osmolality and hyponatremia; Z11.59 Encounter for screening for other viral diseases; Z12.5 Encounter for screening for malignant neoplasm of prostate
CPT/HCPCS: 36415; 80048; 80061; 84153; 86803

== ENCOUNTER 2023-09-29 04:56 | Outpatient (CLI) | payer BC, SELFPAY ==
[2023-09-29 09:19] LABS: Hemoglobin A1C 5.5 % (<5.7)
[2023-09-29 09:27] LABS: Anion Gap 7.2 mmol/L (3-11); BUN 29 mg/dL (7-18); CO2 28.8 mmol/L (21.0-32.0); CREATININE 1.1 mg/dL (0.70-1.30); Calcium 9.4 mg/dL (8.5-10.1); Calculated LDL 92 mg/dL (<100); Chloride 103 mmol/L (98-107); Cholesterol 171 mg/dL (<200); Estimated GFR 74.96 (mL/min/1.73m2); Glucose 112 mg/dL (74-106); HDL Cholesterol 68 mg/dL (40-60); Potassium 4.7 mmol/L (3.5-5.1); Sodium 139 mmol/L (136-145); Triglyceride 59 mg/dL (<150)
== END 2023-09-29 04:57 | disposition home or self-care (01) ==
LOC: LBO 04:56
PROVIDERS: PCP Family Medicine; Visit Provider Family Medicine
DX: E87.1 Hypo-osmolality and hyponatremia (principal); E11.51 Type 2 diabetes mellitus with diabetic peripheral angiopathy without gangrene; I70.203 Unspecified atherosclerosis of native arteries of extremities, bilateral legs
CPT/HCPCS: 36415; 80048; 80061; 83036

== ENCOUNTER 2024-11-12 01:01 | Outpatient (CLI) | payer MEDICARE, BC, SELFPAY ==
[2024-11-12 19:21] LABS: PSA, Screening 0.6 ng/mL (<=4.5)
== END 2024-11-12 01:02 | disposition home or self-care (01) ==
LOC: LBO 01:01
PROVIDERS: PCP Family Medicine; Visit Provider Family Medicine
DX: Z12.5 Encounter for screening for malignant neoplasm of prostate (principal)
CPT/HCPCS: 36415; 84153